=== PATIENT | female | born 1990 | race Caucasian/White ===

== ENCOUNTER 2024-03-23 13:29 | Emergency (ER) | payer OTHER ==
[2024-03-23 13:41] VITALS: BP 121/77; PULSE 81; RESP 20; TEMP 98; BMI 28.8
== END 2024-03-23 15:03 | disposition home or self-care (01) ==
LOC: JERFT 13:29
DX: T20.10XA Burn of first degree of head, face, and neck, unspecified site, initial encounter (principal); T22.132A Burn of first degree of left upper arm, initial encounter; X10.1XXA Contact with hot food, initial encounter; Y99.0 Civilian activity done for income or pay
CPT/HCPCS: 99283-25

== ENCOUNTER 2024-12-31 18:30 | Emergency (ER) | payer OTHER ==
[2024-12-31 18:40] VITALS: BP 136/90; PULSE 97; RESP 18; TEMP 97.5; BMI 25.5
[2024-12-31] MEDS ORDERED: ACETAMINOPHEN 500 MG TABLET (FP) ONE (19:54)
[2024-12-31] MEDS: ACETAMINOPHEN 500 MG TABLET (FP) PO ONE (19:57)
[2024-12-31 20:05] LABS: ABSOLUTE IMMATURE GRANULOCYTES 0.02 x10^3/uL (0.0-0.031); BASOPHILS # 0.04 x10^3/uL (0.01-0.08); EOSINOPHIL % 0.8 % (0.7-5.8); EOSINOPHILS # 0.08 x10^3/uL (0.04-0.36); HEMATOCRIT 37.5 % (34.1-44.9); HEMOGLOBIN 12.3 g/dL (11.2-15.7); MCHC 32.8 g/dl (32.2-35.5); MEAN PLT VOLUME 10.9 fl (9.4-12.3); MONOCYTE # 0.62 x10^3/uL (0.24-0.86); MONOCYTE % 6.3 % (4.7-12.5); PLATELET COUNT 289 x10^3/uL (182-369); RDW 12.8 % (12.1-16.8)
[2024-12-31 20:08] LABS: URINE APPEARANCE CLOUDY; URINE BILIRUBIN NEGATIVE (NEGATIVE); URINE COLOR YELLOW; URINE GLUCOSE (UA) NEGATIVE (NEGATIVE); URINE KETONE TRACE (NEGATIVE); URINE LEUK ESTERASE NEGATIVE (NEGATIVE); URINE NITRITE NEGATIVE (NEGATIVE); URINE PROTEIN NEGATIVE (NEGATIVE); URINE UROBILINOGEN 0.2 mg/dL (0.2-1.0)
[2024-12-31 20:22] LABS: ALBUMIN 4.1 g/dl (3.4-5.0); BLOOD UREA NITROGEN 10.4 mg/dL (7-18); CALCIUM 9.7 mg/dL (8.5-10.1)
[2024-12-31 20:24] LABS: CREATININE 0.7 mg/dL (0.55-1.3)
[2024-12-31 20:27] LABS: BILIRUBIN,TOTAL 0.3 mg/dL (0.2-1); TOT PROT 7.9 g/dl (6.4-8.2)
== END 2024-12-31 21:52 | disposition home or self-care (01) ==
LOC: JER 18:30
DX: O34.11 Maternal care for benign tumor of corpus uteri, first trimester (principal); O26.891 Other specified pregnancy related conditions, first trimester; R10.31 Right lower quadrant pain; O99.891 Other specified diseases and conditions complicating pregnancy; M54.50 Low back pain, unspecified; Z3A.01 Less than 8 weeks gestation of pregnancy
CPT/HCPCS: 36415; 76817-TC; 80053; 81003; 83690; 84702; 84703; 85025; 87086; 99284-25

== ENCOUNTER 2025-01-11 15:32 | Emergency (ER) | payer OTHER ==
[2025-01-11 15:37] VITALS: BP 136/95; PULSE 98; RESP 18; TEMP 98.5; BMI 25.8
[2025-01-11] MEDS ORDERED: ACETAMINOPHEN 325 MG TABLET (FP) ONE (17:03)
[2025-01-11] MEDS: ACETAMINOPHEN 500 MG TABLET (FP) PO ONE (17:05)
[2025-01-11 17:16] LABS: ABSOLUTE IMMATURE GRANULOCYTES 0.02 x10^3/uL (0.0-0.031); BASOPHILS # 0.06 x10^3/uL (0.01-0.08); EOSINOPHIL % 0.8 % (0.7-5.8); EOSINOPHILS # 0.07 x10^3/uL (0.04-0.36); HEMATOCRIT 42.1 % (34.1-44.9); HEMOGLOBIN 13.7 g/dL (11.2-15.7); MCHC 32.5 g/dl (32.2-35.5); MEAN CELL VOLUME 87.5 fl (79.4-94.8); MEAN PLT VOLUME 10.6 fl (9.4-12.3); MONOCYTE % 5.5 % (4.7-12.5); PLATELET COUNT 317 x10^3/uL (182-369); RDW 12.6 % (12.1-16.8)
[2025-01-11 17:22] LABS: EPI CELLS >36 /uL (0-25.1); HYALINE CASTS 18 /uL (0-3.1); URINE APPEARANCE TURBID; URINE BILIRUBIN 1+ (NEGATIVE); URINE COLOR RED; URINE GLUCOSE (UA) NEGATIVE (NEGATIVE); URINE KETONE NEGATIVE (NEGATIVE); URINE LEUK ESTERASE 2+ (NEGATIVE); URINE NITRITE POSITIVE (NEGATIVE); URINE PROTEIN 2+ (NEGATIVE); URINE RBC 37859 /uL (0-23.9); URINE UROBILINOGEN 0.2 mg/dL (0.2-1.0); URINE WBC 93 /uL (0-25.8)
[2025-01-11 17:37] LABS: POTASSIUM 4.1 mmol/L (3.5-5.1)
[2025-01-11 17:38] LABS: URINE BACTERIA 101.2 /uL (0-1359)
[2025-01-11 17:39] LABS: CALCIUM 9.8 mg/dL (8.5-10.1)
[2025-01-11 17:40] LABS: ALBUMIN 4.2 g/dl (3.4-5.0); BLOOD UREA NITROGEN 10.2 mg/dL (7-18)
[2025-01-11 17:43] LABS: CREATININE 0.7 mg/dL (0.55-1.3)
[2025-01-11 17:44] LABS: BILIRUBIN,TOTAL 0.4 mg/dL (0.2-1)
[2025-01-11 18:33] LABS: HIV INTERPRETATION NEGATIVE (NEGATIVE)
[2025-01-11 18:34] LABS: HCV DIAGNOSTIC IN-HOUSE W/RFLX NON-REACTIVE (NONREACTIVE)
[2025-01-11] MEDS: RHO(D) IMMUNE GLOBULIN 1,500 UNIT DISP.SYRIN IM ONE (21:15)
== END 2025-01-11 21:33 | disposition home or self-care (01) ==
LOC: JER 15:32
PROC: 3E023GC Introduction of Other Therapeutic Substance into Muscle, Percutaneous Approach (ICD-10-PCS; principal; 2025-01-11)
DX: O03.9 Complete or unspecified spontaneous abortion without complication (principal); R10.2 Pelvic and perineal pain
CPT/HCPCS: 36415; 76817-TC; 80053; 81003; 84702; 85025; 86803; 86850; 86900; 86901; 87086; 87389; 96372; 99285-25; J2790